=== PATIENT | female | born 1965 | race African-American/Black ===

== ENCOUNTER 2019-11-29 08:08 | Emergency (ER) | payer OTHER ==
[2019-11-29 08:13] VITALS: TEMP 98.2; BMI 47.8
--- NOTE | 2019-11-29 08:59 | PDOC ---
History of Present Illness - General History Source: Patient - History of Present Illness Initial Comments: 11/29/19 09:07 Ms. De Leon is a 54 y/o woman w/hx HTN, asthma p/w one evening of acute onset nausea, vomiting, loose bowel movements, and vertigo. She reports returning home from work yesterday when she developed acute onset nausea. She reports NBNB vomiting approx 3x yesterday evening, as well as 2 loose bowel movements, non-bloody. She reports that shortly after vomiting she developed acute onset dizziness, described as "room spinning". She denies any prior similar episodes of dizziness. She reports that the vertigo worsens when she attempts to lay back or adjust her position quickly. She reports that her two grandchildren, who she lives with, have had nausea/vomiting/diarrhea for the last two days. She denies any fevers, chills, abdominal pain, chest pain, shortness of breath, weakness. <Soren De Los Santos - Last Filed: 11/30/19 08:11> <Bibiana Pimentel - Last Filed: 11/30/19 19:55> - General Chief Complaint: Vomiting/Diarrhea Stated Complaint: VOMITING/DIARRHEA Time Seen by Provider: 11/29/19 08:34 Past History - Past Medical History COPD: No - Psycho Social/Smoking Cessation Hx Smoking History: Never smoked Hx Alcohol Use: No Drug/Substance Use Hx: No <Soren De Los Santos - Last Filed: 11/30/19 08:11> <Bibiana Pimentel - Last Filed: 11/30/19 19:55> - Past Medical History Allergies/Adverse Reactions: Allergies Allergy/AdvReac Type Severity Reaction Status Date / Time No Known Allergies Allergy Verified 11/29/19 08:09 Home Medications: Ambulatory Orders Losartan Potassium [Cozaar -] 100 mg PO DAILY 11/29/19 Metoclopramide HCl [Reglan] 10 mg PO TID 4 Days #12 tablet 11/29/19 Review of Systems - Review of Systems Able to Perform ROS?: Yes Comments:: ROS: GENERAL/CONSTITUTIONAL: No fever or chills. No weakness. HEAD, EYES, EARS, NOSE AND THROAT: No change in vision. No ear pain or discharge. No sore throat. CARDIOVASCULAR: No chest pain or shortness of breath RESPIRATORY: Cough. No wheezing, or hemoptysis. GASTROINTESTINAL: Nausea, vomiting, diarrhea. No constipation. GENITOURINARY: No dysuria, frequency, or change in urination. MUSCULOSKELETAL: No joint or muscle swelling or pain. No neck or back pain. SKIN: No rash NEUROLOGIC: Vertigo. No headache, loss of consciousness, or change in strength/ sensation. ENDOCRINE: No increased thirst. No abnormal weight change HEMATOLOGIC/LYMPHATIC: No anemia, easy bleeding, or history of blood clots. ALLERGIC/IMMUNOLOGIC: No hives or skin allergy. <FilibertoSoren - Last Filed: 11/30/19 08:11> *Physical Exam - Vital Signs Last Vital Signs Temp Pulse Resp BP Pulse Ox 98.2 F 83 18 154/83 96 11/29/19 08:10 11/29/19 08:10 11/29/19 08:10 11/29/19 08:10 11/29/19 08:10 - Physical Exam PE: GENERAL: Awake, alert, and fully oriented, in no acute distress HEAD: No signs of trauma, normocephalic, atraumatic EYES: PERRLA, EOMI, sclera anicteric, conjunctiva clear ENT: Auricles normal inspection, hearing grossly normal, nares patent, oropharynx clear without exudates. Moist mucosa NECK: Normal ROM, supple, no lymphadenopathy, JVD, or masses LUNGS: No distress, speaks full sentences, clear to auscultation bilaterally HEART: Regular rate and rhythm, normal S1 and S2, no murmurs, rubs or gallops, peripheral pulses normal and equal bilaterally. ABDOMEN: Soft, nontender, normoactive bowel sounds. No guarding, no rebound. No masses EXTREMITIES : Normal inspection, Normal range of motion, no edema. No clubbing or cyanosis NEUROLOGICAL: Cranial nerves II through XII grossly intact. Normal speech, normal gait, no focal sensorimotor deficits SKIN: Warm, Dry, normal turgor, no rashes or lesions noted <FilibertoSoren - Last Filed: 11/30/19 08:11> - Vital Signs Last Vital Signs Temp Pulse Resp BP Pulse Ox 98.2 F 79 18 150/71 98 11/29/19 08:10 11/29/19 11:42 11/29/19 12:02 11/29/19 11:42 11/29/19 12:02 <Bibiana Pimentel - Last Filed: 11/30/19 19:55> ED Treatment Course - LABORATORY CBC & Chemistry Diagram: 11/29/19 09:20 11/29/19 09:24 <Soren De Los Santos - Last Filed: 11/30/19 08:11> - LABORATORY CBC & Chemistry Diagram: 11/29/19 09:20 11/29/19 09:24 - ADDITIONAL ORDERS Additional order review: 11/29/19 09:20 RBC 3.85 MCV 91.9 MCHC 33.5 RDW 13.8 MPV 7.7 Neutrophils % 77.3 Lymphocytes % 15.7 Monocytes % 4.7 Eosinophils % 1.6 Basophils % 0.7 - Medications Given in the ED: ED Medications Discontinued Medications Generic Name Dose Route Start Last Admin Trade Name Freq PRN Reason Stop Dose Admin Lactated Ringer's 1,000 ml 11/29/19 09:00 11/29/19 09:23 Lactated Ringers Solution IV 11/29/19 09:01 1,000 ml ONCE ONE Administration Metoclopramide HCl 10 mg 11/29/19 09:00 11/29/19 09:23 Reglan Injection - IVPUSH 11/29/19 09:01 10 mg ONCE ONE Administration <Bibiana Pimentel - Last Filed: 11/30/19 19:55> Medical Decision Making - Medical Decision Making 11/29/19 09:12 54F w/hx asthma, HTN p/w acute onset vertigo in the context of N/V with two family members in the home with similar GI symptoms, likely representing peripheral vertigo given acute, rapid onset and lack of focal neuro deficits. Viral labrynthitis vs other viral cause of vertigo possible etiology given likely viral GI symptoms. Plan: CBC CMP Cardiac Profile EKG 1L IV LR Reglan 10mg IV Orthostatics Dispo: Pending reassessment, likely discharge 11/29/19 10:27 On reassessment, she reports that her vertigo has improved significantly --- CBC, CMP - wnl Cardiac profile - negative On reassessment, she remains feeling well and is able to ambulate without assistance. Plan for discharge with reglan, with PCP and neurology follow up. <Soren De Los Santos - Last Filed: 11/30/19 08:11> Discharge - Discharge Information Problems reviewed: Yes - Admission No <Sroen De Los Santos - Last Filed: 11/30/19 08:11> - Discharge Information Problems reviewed: Yes <Bibiana Pimentel - Last Filed: 11/30/19 19:55> - Discharge Information Clinical Impression/Diagnosis: Dizziness, Viral syndrome Condition: Stable Disposition: HOME - Additional Discharge Information Prescriptions: Metoclopramide HCl [Reglan] 10 mg PO TID 4 Days #12 tablet - Follow up/Referral Referrals: Remy Montelongo MD [Primary Care Provider] - - Patient Discharge Instructions Patient Printed Discharge Instructions: DI for Vertigo Additional Instructions: You were seen in the ER for dizziness, nausea, vomiting. Your blood work was normal. Your symptoms improved after Reglan, a medication that can help with vertigo. Please follow up with your primary care provider as soon as possible, in the next 2-3 days. Please return to the ER if your vertigo worsens, you are unable to walk, you develop a severe headache, a high fever, chest pain, shortness of breath. - Post Discharge Activity
[2019-11-29] MEDS ORDERED: LACTATED RINGERS SOLUTION 1000 ML INFUS.BAG IV ONE (09:00)
[2019-11-29] MEDS ORDERED: METOCLOPRAMIDE HCL INJECTION 10 MG/2 ML VIAL IVPUSH ONE (09:00)
[2019-11-29] MEDS ORDERED: METOCLOPRAMIDE HCL INJECTION 10 MG/2 ML VIAL ONE (09:12)
[2019-11-29 09:45] LABS: BASO % 0.7 % (0-2.0); EOS % 1.6 % (0-4.5); HEMATOCRIT 35.4 % (32.4-45.2); HEMOGLOBIN 11.8 GM/dL (10.7-15.3); LYMPH % 15.7 % (8-40); MCH 30.7 pg (25.7-33.7); MCHC 33.5 g/dl (32.0-36.0); MEAN CELL VOLUME 91.9 fl (80-96); MEAN PLT VOLUME 7.7 fl (7.5-11.1); MONO % 4.7 % (3.8-10.2); NEUT % 77.3 % (42.8-82.8); PLATELET COUNT 301 K/MM3 (134-434); RBC 3.85 M/mm3 (3.60-5.2); RDW 13.8 % (11.6-15.6); WHITE BLOOD COUNT 9.9 K/mm3 (4.0-10.0)
--- NOTE | 2019-11-29 10:10 | PDOC ---
Documentation entered by Vero Washington SCRIBE, acting as scribe for Bibiana Pimentel MD. Bibiana Pimentel MD: This documentation has been prepared by the Padmini woodward Nirvannie, SCRIBE, under my direction and personally reviewed by me in its entirety. I confirm that the documentation accurately reflects all work, treatment, procedures, and medical decision making performed by me. Attending Attestation - Resident Resident Name: Rosa MariaolivierSoren - ED Attending Attestation I have performed the following: I have examined & evaluated the patient, The case was reviewed & discussed with the resident, I agree w/resident's findings & plan, Exceptions are as noted - HPI HPI: 11/29/19 09:26 [id number] with significant past medical history of HTN and Asthma who presents to the emergency department with 1.5 days of nausea with NBNB emesis, diarrhea, and vertigo. As per patient, her symptoms initially onset as nausea then 3 episodes of emesis yesterday and 2 episodes of diarrhea described as nonbloody and loose. Patient notes beginning to feel dizzy shortly described as the room spinning worsened while moving quickly and lying down. Patient notes she is positive for sick contacts, grandchildren have nausea, vomiting, and diarrhea x2 days. Denies fever, chills, chest pain, SOB, palpitation, dizziness, weakness, abdominal pain, bladder and bowel problems, leg swelling, No recent travel. No new changes in medications. Allergies: None Past Medical History: HTN and Asthma Social history: Lives with family. No tobacco, ETOH or drug use. Surgical history: None reported. Meds: as documented in EMR PMD: Dr. Malik Montelongo - Physicial Exam PE: 11/29/19 10:09 NAD, well appearing, EOMI, PERRL, nl conjunctiva, anicteric; neck supple. lungs clear, RRR, abdomen soft nontender. No rebound, no guarding. Back nontender. MONTANEZ x4, no focal neuro deficits. No peripheral edema. normal color for ethnicity , WWP. Alert, oriented to person time and place. CN II-XII grossly intact. Strength prox and distally 5/5 throughout. Sensation grossly intact to light touch. MONTANEZ x4. No cerebellar signs, no dysmetria, bilateral finger to nose and heel to parmar equal and symmetric. Speech clear. 11/29/19 11:34 - Medical Decision Making 11/29/19 Vital Signs Temp Pulse Resp BP Pulse Ox 98.2 F 83 18 154/83 96 11/29/19 08:10 11/29/19 08:10 11/29/19 08:10 11/29/19 08:10 11/29/19 08:10 ddx. vertigo, central vs peripheral vertigo, dehydration, electrolyte/metabolic derangements, anemia, CVA. labrynthitis, viral syndrome, gastroenteritis. VS reviewed, wnl. neuro intact, no cerebellar signs, gait stable. no focal deficits no cp or sob likely AGE, viral syndrome. pt given IVF, reglan, with symptom improvement abdomen soft benign. no peritoneal findings. labs and lytes wnl, trop neg reassuring. ck nonspecific, mildly elevated but otherwise unremarkable. no muscle aches/myalgias or sx to suggest rhabdo. supportive, care, hydration, antiemetics prn. Pt to be discharged in stable condition. Patient made aware of clinical impression, treatment recommendations and disposition plan, return precautions discussed (including but not limited to new or persistent/worsening symptoms, pain, fevers, or signs of infection, chest pain, respiratory distress, inability to tolerate oral intake, dehydration, syncope, or neurologic changes) . Follow up with PMD as recommended, follow up information provided, take medications as instructed for duration of time. continue with supportive care, avoid triggers and precipitants. All questions answered to patient's satisfaction and expressed understanding and comfort with this. At the time of discharge, the patient is alert, clinically improved, tolerating po and verbalizes understanding of instructions, satisfied with the care received and felt comfortable with the plan. Patient does not suffer from an acute life- threatening medical condition at this time and is safe for outpatient follow- up. 11/29/19 10:40 Heart Score/ECG Review #1 ECG reviewed & interpreted by me at: 09:30 General ECG Interpretation: Sinus Rhythm, Normal Rate, Normal Intervals 11/29/19 10:22 EKG performed at 9:25 depicts Sinus rhythm at 74 bpm with low voltage waves, normal intervals. No ischemic changes.
[2019-11-29 10:20] LABS: ALBUMIN 3.4 g/dl (3.4-5.0); BILIRUBIN,TOTAL 0.4 mg/dL (0.2-1); BLOOD UREA NITROGEN 14.2 mg/dL (7-18); CALCIUM 8.8 mg/dL (8.5-10.1); CREATININE 0.7 mg/dL (0.55-1.3); POTASSIUM 4.1 mmol/L (3.5-5.1)
[2019-11-29 11:44] VITALS: BP 150/71; PULSE 79
--- NOTE | 2019-11-29 12:23 | EKG ---
Test Reason : Blood Pressure : / mmHG Vent. Rate : 074 BPM Atrial Rate : 074 BPM P-R Int : 188 ms QRS Dur : 090 ms QT Int : 418 ms P-R-T Axes : 054 005 045 degrees QTc Int : 463 ms NORMAL SINUS RHYTHM LOW VOLTAGE QRS CANNOT RULE OUT SEPTAL INFARCT , AGE UNDETERMINED Confirmed by ESTHELA LANGLEY MD ([id number]) on 11/29/2019 12:23:22 PM Referred By: Confirmed By:ESTHELA LANGLEY MD
== END 2019-11-29 12:17 | disposition home or self-care (01) ==
LOC: JER 08:08
PROC: 3E033GC Introduction of Other Therapeutic Substance into Peripheral Vein, Percutaneous Approach (ICD-10-PCS; principal; 2019-11-29)
DX: K52.9 Noninfective gastroenteritis and colitis, unspecified (principal); I10 Essential (primary) hypertension; J45.909 Unspecified asthma, uncomplicated
CPT/HCPCS: 36415; 80053; 82550; 82553; 84484; 85025; 93005; 93010; 99284-25

== ENCOUNTER 2022-07-25 20:20 | Emergency (ER) | payer BC ==
[2022-07-25 20:54] VITALS: BP 143/70; PULSE 85; RESP 18; TEMP 98.4; BMI 47.1
[2022-07-25] MEDS ORDERED: ALBUTEROL SO4 2.5/IPRATROPIUM 0.5 INH SOL 3 ML VIAL.NEB. NEB ONE ×2 (21:33→21:34)
[2022-07-25] MEDS: ALBUTEROL SO4 2.5/IPRATROPIUM 0.5 INH SOL 3 ML VIAL.NEB. NEB SCH ×2 (21:41→21:42)
== END 2022-07-25 23:17 | disposition home or self-care (01) ==
LOC: JER 20:20
PROC: 3E0F7GC Introduction of Other Therapeutic Substance into Respiratory Tract, Via Natural or Artificial Opening (ICD-10-PCS; principal; 2022-07-25)
DX: R06.02 Shortness of breath (principal); J45.21 Mild intermittent asthma with (acute) exacerbation; R05.1 Acute cough
CPT/HCPCS: 0241U-QW; 71046-TC-FY; 99284-25

== ENCOUNTER 2022-10-20 21:47 | Inpatient (IN) | payer BC ==
[2022-10-20 21:53] VITALS: BMI 49.9
[2022-10-20] MEDS ORDERED: guaiFENesin/D-M SUGAR-FREE/ACLHOL-FREE 118 ML BOTTLE PO ONE (22:53)
[2022-10-20] MEDS ORDERED: ALBUTEROL SO4 2.5/IPRATROPIUM 0.5 INH SOL 3 ML VIAL.NEB. NEB ONE (23:02)
[2022-10-20] MEDS ORDERED: guaiFENesin/D-METHORPHAN HB 10 ML UNIT-DOSE CUPS ONE (23:03)
[2022-10-20] MEDS: ALBUTEROL SO4 2.5/IPRATROPIUM 0.5 INH SOL 3 ML VIAL.NEB. NEB SCH ×3 (23:12→23:40)
[2022-10-20] MEDS ORDERED: methylPREDNISolone NA SUCC 125 MG/2 ML VIAL IVPUSH ONE (23:12)
[2022-10-20] MEDS ORDERED: methylPREDNISolone NA SUCC 125 MG/2 ML VIAL ONE (23:23)
[2022-10-20 23:46] LABS: BASO % 1.3 % (0-2.0); EOS % 7.9 % (0-4.5); HEMATOCRIT 35.9 % (32.4-45.2); LYMPH % 27.8 % (8-40); MCH 30.7 pg (25.7-33.7); MCHC 33.5 g/dl (32.0-36.0); MEAN CELL VOLUME 91.6 fl (80-96); MEAN PLT VOLUME 7.3 fl (7.5-11.1); MONO % 3.5 % (3.8-10.2); NEUT % 59.5 % (42.8-82.8); PLATELET COUNT 320 10^3/uL (134-434); RBC 3.92 M/mm3 (3.60-5.2); RDW 14.1 % (11.6-15.6); WHITE BLOOD COUNT 12.5 K/mm3 (4.0-10.0)
[2022-10-20 23:53] LABS: INR 0.99 (0.83-1.09); PROTHROMBIN TIME (PATIENT) 11.4 SEC (9.7-13.0)
[2022-10-21] MEDS: ALBUTEROL SO4 2.5/IPRATROPIUM 0.5 INH SOL 3 ML VIAL.NEB. NEB SCH
[2022-10-21 00:14] LABS: CHLORIDE 101 mmol/L (98-107); SODIUM 138 mmol/L (136-145)
[2022-10-21 00:17] LABS: CALCIUM 9.3 mg/dL (8.5-10.1)
[2022-10-21 00:18] LABS: ALBUMIN 3.3 g/dl (3.4-5.0); ANION GAP 4 MMOL/L (8-16); CO2 33 mmol/L (21-32); GLUCOSE,RANDOM 141 mg/dL (74-106); MAGNESIUM 1.5 mg/dL (1.8-2.4)
[2022-10-21 00:21] LABS: CREATININE 0.9 mg/dL (0.55-1.3); SGOT/AST 35 U/L (15-37); SGPT/ALT 26 U/L (13-61)
[2022-10-21 00:23] LABS: BILIRUBIN,TOTAL 0.4 mg/dL (0.2-1); TOT PROT 7.3 g/dl (6.4-8.2)
[2022-10-21 00:24] LABS: ALK PHOS 39 U/L (45-117)
[2022-10-21 00:26] LABS: N-TERMINAL BNP < 5.0 pg/ml (5-125)
[2022-10-21] MEDS ORDERED: MAGNESIUM SULF 50% (8.12 MEQ/2 ML-1 GM VIAL) IVPB ONE (00:33)
[2022-10-21] MEDS ORDERED: MAGNESIUM SULFATE IN WATER 2 GM/50 ML IVPB IVPB ONE (00:37)
[2022-10-21] MEDS ORDERED: ALBUTEROL SO4 2.5/IPRATROPIUM 0.5 INH SOL 3 ML VIAL.NEB. NEB ONE (03:16)
[2022-10-21] MEDS ORDERED: guaiFENesin/D-METHORPHAN HB 10 ML UNIT-DOSE CUPS ONE (04:12)
[2022-10-21] MEDS ORDERED: guaiFENesin 200 MG/10 ML 10 ML UNIT-DOSE CUPS PO PRN (05:00)
[2022-10-21] MEDS ORDERED: ALBUTEROL SO4 2.5/IPRATROPIUM 0.5 INH SOL 3 ML VIAL.NEB. NEB PRN (06:00)
[2022-10-21] MEDS ORDERED: methylPREDNISolone NA SUCC 125 MG/2 ML VIAL IVPUSH SCH (09:00)
[2022-10-21 09:09] LABS: URINE APPEARANCE CLEAR; URINE BILIRUBIN NEGATIVE (NEGATIVE); URINE COLOR YELLOW; URINE KETONE 80 (NEGATIVE)
[2022-10-21 09:10] LABS: URINE LEUK ESTERASE NEGATIVE (NEGATIVE); URINE NITRITE NEGATIVE (NEGATIVE); URINE PROTEIN NEGATIVE (NEGATIVE); URINE UROBILINOGEN 0.2 mg/dL (0.2-1.0)
[2022-10-21 09:15] LABS: HEMATOCRIT 36.3 % (32.4-45.2); HEMOGLOBIN 11.9 GM/dL (10.7-15.3); MCH 30.2 pg (25.7-33.7); MCHC 32.9 g/dl (32.0-36.0); MEAN CELL VOLUME 91.9 fl (80-96); MEAN PLT VOLUME 7.7 fl (7.5-11.1); PLATELET COUNT 329 10^3/uL (134-434); RBC 3.95 M/mm3 (3.60-5.2); RDW 14.5 % (11.6-15.6); WHITE BLOOD COUNT 11.6 K/mm3 (4.0-10.0)
[2022-10-21] MEDS ORDERED: methylPREDNISolone NA SUCC 40 MG/1 ML VIAL ONE (09:37)
[2022-10-21] MEDS ORDERED: LOSARTAN POTASSIUM 50 MG TABLET ONE (09:37)
[2022-10-21 09:57] LABS: ALBUMIN 3.4 g/dl (3.4-5.0); BILIRUBIN,TOTAL 0.4 mg/dL (0.2-1); TOT PROT 7.4 g/dl (6.4-8.2)
[2022-10-21 10:00] LABS: CALCIUM 9.3 mg/dL (8.5-10.1); MAGNESIUM 1.9 mg/dL (1.8-2.4)
[2022-10-21] MEDS ORDERED: methylPREDNISolone NA SUCC 40 MG/1 ML VIAL IVPUSH SCH (10:00)
[2022-10-21] MEDS ORDERED: BUDESONIDE/FORMETEROL FUMARATE 80/4.5 mcg INHALER IH SCH (10:00)
[2022-10-21] MEDS ORDERED: LOSARTAN POTASSIUM 50 MG TABLET PO SCH (10:00)
[2022-10-21 10:02] VITALS: BP 137/75; PULSE 91; TEMP 97.9
[2022-10-21 10:12] LABS: ANISOCYTOSIS 0; HELMET CELLS 0; HOWELL-JOLLY BODIES 0; MACROCYTOSIS 0; OVALOCYTE 0; ROULEAU 0; SICKELED CELLS 0; TARGET CELLS 0; TEAR DROP CELLS 0; TOXIC GRANULATION 0
[2022-10-21 15:15] VITALS: RESP 17
== END 2022-10-21 15:16 | disposition home or self-care (01) | DRG 202 ==
LOC: JER 21:47 → JERBED 10-21 03:26
PROVIDERS: ADMIT Internal Medicine; ATTEND Family Medicine
DX: J45.21 Mild intermittent asthma with (acute) exacerbation (principal); Z68.42 Body mass index [BMI] 45.0-49.9, adult; I10 Essential (primary) hypertension; E11.9 Type 2 diabetes mellitus without complications; E66.01 Morbid (severe) obesity due to excess calories; K21.9 Gastro-esophageal reflux disease without esophagitis; G47.33 Obstructive sleep apnea (adult) (pediatric)
CPT/HCPCS: 0241U-QW; 36415; 71045-TC-FY; 71275-TC; 80053; 81003; 83735; 83880; 84484; 85025; 85379; 85610; 85730; 87040; 87086; 93005; 93010; 99285-25

== ENCOUNTER 2024-04-06 18:31 | Emergency (ER) | payer BC ==
[2024-04-06 18:40] VITALS: BP 125/74; PULSE 88; RESP 18; TEMP 98.4; BMI 44.2
[2024-04-06 19:41] LABS: BASO % 0.8 % (0-2.0); EOS % 4.4 % (0-4.5); HEMATOCRIT 34.7 % (32.4-45.2); HEMOGLOBIN 11.4 GM/dL (10.7-15.3); LYMPH % 29.1 % (8-40); MCH 29.9 pg (25.7-33.7); MCHC 32.9 g/dl (32.0-36.0); MEAN CELL VOLUME 90.8 fl (80-96); MEAN PLT VOLUME 7.4 fl (7.5-11.1); MONO % 4.6 % (3.8-10.2); NEUT % 61.1 % (42.8-82.8); PLATELET COUNT 285 10^3/uL (134-434); RBC 3.82 M/mm3 (3.60-5.2); RDW 14.3 % (11.6-15.6); WHITE BLOOD COUNT 8.6 K/mm3 (4.0-10.0)
[2024-04-06 19:52] LABS: INR 0.96 (0.83-1.09); PROTHROMBIN TIME (PATIENT) 11.1 SEC (9.7-13.0)
[2024-04-06 19:55] LABS: ACTIVATED PTT 31.2 SECONDS (25.2-36.5)
[2024-04-06 19:56] LABS: POTASSIUM 3.9 mmol/L (3.5-5.1)
[2024-04-06 19:59] LABS: ALBUMIN 3.5 g/dl (3.4-5.0); BLOOD UREA NITROGEN 18.5 mg/dL (7-18)
[2024-04-06 20:02] LABS: CREATININE 0.8 mg/dL (0.55-1.3)
[2024-04-06 20:03] LABS: BILIRUBIN,TOTAL 0.2 mg/dL (0.2-1)
[2024-04-06 20:04] LABS: TOT PROT 6.8 g/dl (6.4-8.2)
== END 2024-04-06 22:30 | disposition home or self-care (01) ==
LOC: JERFT 18:31
DX: M79.661 Pain in right lower leg (principal); M79.89 Other specified soft tissue disorders; M25.474 Effusion, right foot
CPT/HCPCS: 36415; 80053; 85025; 85610; 85730; 93971-TC; 99284-25

== ENCOUNTER 2024-05-24 09:07 | Emergency (ER) | payer BC ==
[2024-05-24 09:12] VITALS: BMI 40.7
[2024-05-24 10:23] LABS: BASO % 0.9 % (0-2.0); EOS % 2.3 % (0-4.5); HEMATOCRIT 37.5 % (32.4-45.2); HEMOGLOBIN 12.5 GM/dL (10.7-15.3); LYMPH % 23.5 % (8-40); MCH 30.1 pg (25.7-33.7); MCHC 33.2 g/dl (32.0-36.0); MEAN CELL VOLUME 90.6 fl (80-96); MEAN PLT VOLUME 7.6 fl (7.5-11.1); MONO % 5.5 % (3.8-10.2); NEUT % 67.8 % (42.8-82.8); PLATELET COUNT 268 10^3/uL (134-434); RBC 4.14 M/mm3 (3.60-5.2); RDW 14.1 % (11.6-15.6); WHITE BLOOD COUNT 7.6 K/mm3 (4.0-10.0)
[2024-05-24 10:25] LABS: INR 0.97 (0.83-1.09); PROTHROMBIN TIME (PATIENT) 11.2 SEC (9.7-13.0)
[2024-05-24 10:28] LABS: ACTIVATED PTT 28.5 SECONDS (25.2-36.5)
[2024-05-24 10:36] LABS: POTASSIUM 4.5 mmol/L (3.5-5.1)
[2024-05-24 10:38] LABS: ALBUMIN 3.6 g/dl (3.4-5.0); BLOOD UREA NITROGEN 15.8 mg/dL (7-18); CALCIUM 9.5 mg/dL (8.5-10.1); MAGNESIUM 1.7 mg/dL (1.8-2.4)
[2024-05-24 10:42] LABS: BILIRUBIN,TOTAL 0.4 mg/dL (0.2-1); CREATININE 0.8 mg/dL (0.55-1.3); TOT PROT 7.3 g/dl (6.4-8.2)
[2024-05-24] MEDS ORDERED: LIDOCAINE 4% PATCH TP ONE (10:42)
[2024-05-24] MEDS: LIDOCAINE 4% PATCH TP ONE (10:45)
[2024-05-24] MEDS ORDERED: ACETAMINOPHEN INJECTION 100 ML IVPB ONE (12:24)
[2024-05-24] MEDS: ACETAMINOPHEN 1000 MG/100 ML BAG IVPB ONE (12:28)
[2024-05-24 13:37] VITALS: BP 124/73; PULSE 78; RESP 20; TEMP 98
[2024-05-24] MEDS ORDERED: LIDOCAINE PATCH REMOVAL MC ONE (22:00)
== END 2024-05-24 16:41 | disposition home or self-care (01) ==
LOC: JERFT 09:07 → JER 09:07
PROC: 3E033NZ Introduction of Analgesics, Hypnotics, Sedatives into Peripheral Vein, Percutaneous Approach (ICD-10-PCS; principal; 2024-05-24)
DX: R07.89 Other chest pain (principal); M54.6 Pain in thoracic spine; M54.50 Low back pain, unspecified; W10.8XXA Fall (on) (from) other stairs and steps, initial encounter
CPT/HCPCS: 36415; 71046-TC-FY; 72070-TC-FY; 72100-TC-FY; 72128-TC; 72131-TC; 80053; 83735; 84484; 85025; 85610; 85730; 93005; 93010; 99285-25; J0131